=== PATIENT | female | born 1970 | race Two or more races ===

== ENCOUNTER 2022-09-18 21:27 | Emergency (ER) | payer OTHER ==
[~2022-09-18] VITALS: Ht 175.3 cm; Wt 68.0 kg
[2022-09-18] MEDS ORDERED: SYNTHROID88 MCG PO (21:51)
[2022-09-18] MEDS ORDERED: MESALAMINE800 MG PO (21:52)
[2022-09-19] MEDS ORDERED: BENZONATATE100 MG PO (00:26)
== END 2022-09-19 01:09 | disposition home or self-care (01) ==
LOC: ER 21:27 → EDBD 21:35 → ER 09-19 01:09
DX: U07.1 COVID-19 (principal)

== ENCOUNTER 2022-09-21 12:20 | Outpatient (CLI) | payer OTHER ==
[~2022-09-21 12:20] MED LIST: BENZONATATE100 MG PO; MESALAMINE800 MG PO; SYNTHROID88 MCG PO
== END 2022-09-21 12:22 | disposition home or self-care (01) ==
LOC: EDBD 12:20 → LAB 12:20
DX: I10 Essential (primary) hypertension (principal); E03.9 Hypothyroidism, unspecified; E78.2 Mixed hyperlipidemia; N95.1 Menopausal and female climacteric states; N92.6 Irregular menstruation, unspecified; R97.1 Elevated cancer antigen 125 [CA 125]; N80.30 Endometriosis of pelvic peritoneum, unspecified; Z68.1 Body mass index [BMI] 19.9 or less, adult

== ENCOUNTER 2022-09-21 14:00 | Outpatient (CLI) | payer OTHER | END 2022-09-21 14:20 | disposition home or self-care (01) | LOC: MAMO-SONO 14:00 | PROVIDERS: ATTEND Obstetrics & Gynecology Obstetrics | DX: N64.4 Mastodynia (principal); N63 Unspecified lump in breast ==

== ENCOUNTER 2023-12-09 13:49 | Outpatient (CLI) | payer OTHER | END 2023-12-09 13:53 | disposition home or self-care (01) | LOC: MAMO-SONO 13:49 | PROVIDERS: ATTEND Obstetrics & Gynecology Obstetrics | DX: N64.4 Mastodynia (principal); N63 Unspecified lump in breast ==

== ENCOUNTER 2023-12-19 09:36 | Outpatient (CLI) | payer OTHER ==
[2023-12-19 10:31] LABS: PH,URINE 6.5 (5.0-8.0); URINE APPEARANCE Clear; URINE BILIRRUBIN Negative (NEGATIVE); URINE BLOOD Negative; URINE COLOR Yellow; URINE GLUCOSE Negative (NEGATIVE); URINE KETONE Negative (NEGATIVE); URINE LEUKOCYTE Negative; URINE NITRATE Negative; URINE PROTEIN Negative (NEGATIVE); URINE UROBILINOGEN 0.2 E.U./dl
[2023-12-19 10:33] LABS: URINE BACTERIA 191.4 uL (0.0-1933); URINE EPITHELIAL CELLS 10.5 uL (0.0-38.8); URINE WBC 2.3 uL (0.0-23.2)
[2023-12-19 10:35] LABS: URINE RBC 1.2 uL (0.0-20.8)
[2023-12-19 10:38] LABS: HEMATOCRIT 41.2 % (36.0-45.00); HEMOGLOBIN 14.1 g/dL (12.0-15.00); MEAN CELL VOLUME 94.9 fL (80.00-100.00); MEAN CORPUSCULAR HEMOGLOBIN 32.5 pg (27.00-32.0); MEAN CORPUSCULAR HGB CONC 34.3 g/dl (32.0-36.0); PLATELET COUNT 240 K/uL (150-450); RED BLOOD COUNT 4.34 M/uL (4.00-6.00); RED CELL DISTRIBUTION WIDTH 13.2 % (11.5-14.5)
[2023-12-19 11:30] LABS: ALBUMIN 3.9 gm/dL (3.4-5.0); BILIRUBIN TOTAL 0.61 mg/dL (0.3-1.2); CALCIUM 9.2 mg/dL (8.5-10.1); CHOL HDL RATIO 3.2 (0-5.0); CREATININE SERUM 0.8 mg/dL (0.55-1.02); GFR 74.47; GLOBULINA 3.2 G/DL (2.4-3.5); POTASSIUM 4.68 mEq/L (3.5-5.1); TOTAL PROTEIN 7.1 gm/dL (6.4-8.2); TSH 0.846 uIU/mL (0.358-3.74)
[2023-12-21 05:05] LABS: ESTRADIOL SERUM 54.2 pg/mL (.); FOLLICLE STIMULATING HORMONE 73.1 mIU/mL (.)
== END 2023-12-19 09:37 | disposition home or self-care (01) ==
LOC: LAB 09:36
PROVIDERS: ATTEND Obstetrics & Gynecology Obstetrics
DX: E11.9 Type 2 diabetes mellitus without complications (principal); E68 Sequelae of hyperalimentation; E55.9 Vitamin D deficiency, unspecified; E78.2 Mixed hyperlipidemia; E03.9 Hypothyroidism, unspecified; I10 Essential (primary) hypertension; N92.6 Irregular menstruation, unspecified

== ENCOUNTER → 2024-06-15 12:48 | Outpatient (CLI) | payer OTHER ==
[2024-06-15 15:06] LABS: CHOL HDL RATIO 3.7 (0-5.0); TSH 1.41 uIU/mL (0.358-3.74)
== END | disposition home or self-care (01) ==
LOC: LAB 12:48
PROVIDERS: ATTEND Obstetrics & Gynecology
DX: R19.00 Intra-abdominal and pelvic swelling, mass and lump, unspecified site (principal)

== ENCOUNTER 2024-11-01 15:14 | Emergency (ER) | payer OTHER ==
[~2024-11-01] VITALS: Ht 175.3 cm; Wt 68.0 kg
[2024-11-01] MEDS ORDERED: PROGESTERONE200 MG PO (15:39)
[2024-11-01 15:40] VITALS: BP 95/60; O2SAT 98
[2024-11-01] MEDS ORDERED: ONDANSETRON HCL 2 MG/ML VIAL ONE (16:59)
[2024-11-01] MEDS ORDERED: FAMOtidine 10 MG/ML (4ML VIAL) IV ONE (17:00)
[2024-11-01] MEDS ORDERED: FAMOTIDINE/PF 20 MG/2 ML VIAL ONE (17:00)
[2024-11-01] MEDS ORDERED: 0.9 % SODIUM CHLORIDE 500 ML IV ONE (17:00)
[2024-11-01] MEDS ORDERED: ONDANSETRON HCL 2 MG/ML VIAL IV ONE (17:00)
[2024-11-01] MEDS ORDERED: LACTOBACILLUS ACIDOPHILUS 1 CAP CAP PO ONE ×2 (17:35→18:30)
[2024-11-01 17:36] LABS: BASO % 0.4 % (0.1-1.2); EOS # 0.16 (0.04-0.54); EOS % 1.7 % (0.7-7.0); LYMPH # 1.57 (1.18-3.74); LYMPH % 16.3 % (19.3-53.1); MEAN PLATELET VOLUME 11.00 fl (9.4-12.4); MONO # 0.87 (0.24-0.82); MONO % 9.0 % (4.7-12.5); NEUT # 6.96 (1.56-6.13); NEUT % 72.4 % (34.0-71.1); RED CELL DISTRIBUTION WIDTH 12.4 % (11.6-14.4)
[2024-11-01 17:58] LABS: COVID-19 AG NEGATIVE (NEGATIVE)
[2024-11-01 18:00] LABS: ALT/SGPT 21.0 U/L (12-78); AST/SGOT 19.0 U/L (15-37); BILIRUBIN TOTAL 0.6 mg/dL (0.3-1.2); BUN CREA RATIO 11.0 (7.0-25.0); CREATININE SERUM 0.8 mg/dL (0.55-1.02); GFR 74.2; GLOBULINA 3.3 G/DL (2.4-3.5); GLUCOSE FASTING 86.0 mg/dL (65-100); OSMOLALITY SERUM 279.0 MOSM/KG (275-295)
[2024-11-01] MEDS ORDERED: METRONIDAZOLE500 MG PO (18:25)
[2024-11-01] MEDS ORDERED: LEVSIN/SL0.125 MG SL (18:25)
[2024-11-01] MEDS ORDERED: PROBIOTIC1 EAC2 PO (18:25)
[2024-11-01] MEDS ORDERED: PEPCID AC20 MG PO (18:25)
[2024-11-01] MEDS ORDERED: CIPRO500 MG PO (18:25)
== END 2024-11-01 18:44 | disposition home or self-care (01) ==
LOC: ER 15:17
PROVIDERS: General Practice
DX: R19.7 Diarrhea, unspecified (principal); E03.8 Other specified hypothyroidism; Z20.822 Contact with and (suspected) exposure to COVID-19

== ENCOUNTER 2024-12-10 14:48 | Outpatient (CLI) | payer OTHER ==
[~2024-12-10 14:48] MED LIST changes: +CIPRO500 MG PO; +LEVSIN/SL0.125 MG SL; +METRONIDAZOLE500 MG PO; +PEPCID AC20 MG PO; +PROBIOTIC1 EAC2 PO; +PROGESTERONE200 MG PO
== END 2024-12-10 14:53 | disposition home or self-care (01) ==
LOC: MAMO-SONO 14:48
DX: R10.20 Pelvic and perineal pain unspecified side (principal); N64.4 Mastodynia; N64.9 Disorder of breast, unspecified; Z12.31 Encounter for screening mammogram for malignant neoplasm of breast

== ENCOUNTER → 2025-02-11 08:07 | Outpatient (CLI) | payer OTHER | END | disposition home or self-care (01) | LOC: SONOGRAMA 08:07 | DX: R10.13 Epigastric pain (principal) ==